=== PATIENT | male | born 1980 | race Caucasian/White ===

== ENCOUNTER 2016-05-15 22:05 | Emergency (ER) | payer OTHER, BC ==
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
[2016-05-16] MEDS ORDERED: TRAMADOL HCL 50 MG TABLET PO ONE (01:58)
[2016-05-16 02:26] VITALS: BP 138/89
== END 2016-05-16 02:15 | disposition home or self-care (01) ==
LOC: ER 22:05
DX: S00.83XA Contusion of other part of head, initial encounter (principal); R51 Headache; W20.8XXA Other cause of strike by thrown, projected or falling object, initial encounter; Y93.89 Activity, other specified; Y99.0 Civilian activity done for income or pay; Z91.013 Allergy to seafood; Z87.892 Personal history of anaphylaxis; Z88.6 Allergy status to analgesic agent
CPT/HCPCS: 70486; 99283

== ENCOUNTER → 2016-05-31 | Outpatient (CLI) | payer OTHER, BC | LOC: RAD 20:00 | PROVIDERS: ATTEND Physician Assistant | DX: F07.81 Postconcussional syndrome (principal) | CPT/HCPCS: 70450 ==

== ENCOUNTER 2016-07-02 20:15 | Emergency (ER) | payer BC, OTHER ==
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
[2016-07-03 00:53] VITALS: BP 120/72
== END 2016-07-03 00:56 | disposition home or self-care (01) ==
LOC: ER 20:15
DX: R13.10 Dysphagia, unspecified (principal); R11.10 Vomiting, unspecified
CPT/HCPCS: 70360; 71020; 99284

== ENCOUNTER 2016-07-13 21:41 | Emergency (ER) | payer OTHER, BC ==
[2016-07-13] MEDS ORDERED: METOCLOPRAMIDE HCL 10 MG TABLET PO ONE (23:44)
[2016-07-13] MEDS ORDERED: DIPHENHYDRAMINE HCL 25 MG CAPSULE PO ONE (23:44)
[2016-07-13] MEDS ORDERED: ACETAMINOPHEN 325 MG TABLET PO ONE (23:45)
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
[2016-07-14] MEDS ORDERED: FENTANYL CITRATE INJ/PF 100 MCG/2 ML AMPUL IV ONE (03:55)
[2016-07-14] MEDS ORDERED: DEXAMETHASONE SOD PHOS INJ 10 MG/1 ML VIAL IV ONE (03:55)
[2016-07-14] MEDS ORDERED: NORMAL SALINE 1000 ML 1,000 ML IV ONE (03:58)
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
[2016-07-14 05:56] VITALS: BP 130/84
== END 2016-07-14 05:56 | disposition home or self-care (01) ==
LOC: ER 21:41
DX: R51 Headache (principal); S06.0X9S Concussion with loss of consciousness of unspecified duration, sequela; W27.8XXS Contact with other nonpowered hand tool, sequela; Z91.013 Allergy to seafood; Z87.892 Personal history of anaphylaxis; Z88.6 Allergy status to analgesic agent
CPT/HCPCS: 99283; 96361; 96374; 96375; J3010; J7030; J1100

== ENCOUNTER 2017-02-13 18:43 | Emergency (ER) | payer OTHER ==
[2017-02-13] MEDS ORDERED: DIPHENHYDRAMINE HCL 50 MG/ML VIAL IV ONE (21:09)
[2017-02-13] MEDS ORDERED: NORMAL SALINE 1000 ML 1,000 ML IV ONE (21:09)
[2017-02-13] MEDS ORDERED: METOCLOPRAMIDE HCL INJ/PF 10 MG/2 ML SDV IV ONE (21:09)
[2017-02-13] MEDS ORDERED: HYDROMORPHONE HCL INJ/PF 2 MG/ML AMPULE IV ONE ×2 (21:09→23:04)
[2017-02-13] MEDS ORDERED: DEXAMETHASONE SOD PHOS INJ 10 MG/1 ML VIAL IV ONE (21:09)
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
[2017-02-13] MEDS ORDERED: METHOCARBAMOL INJ/PF 1000 MG/10 ML SDV IV ONE (23:03)
[2017-02-13 23:33] VITALS: BP 123/76
== END 2017-02-14 | disposition home or self-care (01) ==
LOC: ER 18:43
DX: R51 Headache (principal); Z88.6 Allergy status to analgesic agent; Z91.013 Allergy to seafood
CPT/HCPCS: 96376; 99283; 96361; 96375; 96365; J1200; J2800; J2765; J1170; J7030; J1100

== ENCOUNTER 2017-04-11 03:48 | Emergency (ER) | payer OTHER ==
[2017-04-11] MEDS ORDERED: ONDANSETRON HCL INJ/PF 4 MG/2 ML SDV IV ONE (03:59)
[2017-04-11] MEDS ORDERED: HYDROMORPHONE HCL INJ/PF 2 MG/ML AMPULE IV ONE ×2 (03:59→05:02)
[2017-04-11] MEDS ORDERED: NORMAL SALINE 1000 ML 1,000 ML IV ONE ×2 (03:59→06:01)
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
[2017-04-11 04:42] LABS: ABSOLUTE BASOPHILS # (AUTO) 0.1 10^3/uL (0.0-0.2); ABSOLUTE EOSINOPHILS # (AUTO) 0.1 10^3/uL (0.0-0.6); ABSOLUTE LYMPHOCYTES (AUTO) 1.8 10^3/uL (0.5-4.7); ABSOLUTE MONOCYTES (AUTO) 0.6 10^3/uL (0.1-1.4); ABSOLUTE NEUT (AUTO) 11.5 10^3/uL (1.7-8.2); BASOPHILS % (AUTO) 0.7 % (0-2); EOSINOPHILS % (AUTO) 0.7 % (0-6); HEMATOCRIT 42.6 % (37.9-51.0); HEMOGLOBIN 14.8 g/dL (13.5-17.0); HGB HCT DIFFERENCE 1.8; LYMPHOCYTES % (AUTO) 12.9 % (13-45); MEAN CORPUSCULAR HEMOGLOBIN 29.3 pg (27.0-33.4); MEAN CORPUSCULAR HGB CONC 34.7 g/dL (32.0-36.0); MEAN CORPUSCULAR VOLUME 84 fl (80-97); MONOCYTES % (AUTO) 4.4 % (3-13); RED BLOOD COUNT 5.04 10^6/uL (4.35-5.55); RED CELL DISTRIBUTION WIDTH 14.2 % (11.5-14.0); SEGMENTED NEUTROPHILS % (AUTO) 81.3 % (42-78); WHITE BLOOD COUNT 14.2 10^3/uL (4.0-10.5)
[2017-04-11 05:01] LABS: ALANINE AMINOTRANSFERASE 39 U/L (21-72); ALBUMIN 4.5 g/dL (3.5-5.0); ALKALINE PHOSPHATASE 61 U/L (38-126); ANION GAP 16 (5-19); ASPARTATE AMINO TRANSFERASE 25 U/L (17-59); BILIRUBIN,DIRECT 0.2 mg/dL (0.0-0.4); BILIRUBIN,TOTAL 0.3 mg/dL (0.2-1.3); BLOOD UREA NITROGEN 14 mg/dL (7-20); CALCIUM 9.7 mg/dL (8.4-10.2); CARBON DIOXIDE 22 mmol/L (22-30); CHLORIDE 105 mmol/L (98-107); CREATININE RESULT 1.01 mg/dL (0.52-1.25); GLUCOSE 134 mg/dL (75-110); POTASSIUM 3.7 mmol/L (3.6-5.0); SODIUM 143.1 mmol/L (137-145); TOTAL PROTEIN 7.4 g/dL (6.3-8.2)
[2017-04-11] MEDS ORDERED: DIPHENHYDRAMINE HCL 50 MG/ML VIAL IV ONE ×2 (05:02→05:08)
--- NOTE | 2017-04-11 05:02 | RADIOLOGY REPORT (SQ) ---
EXAM DESCRIPTION: CT LTD RENAL STONE PROTOCOL ON CLINICAL HISTORY: 36 years Male, left flank pain, vomiting COMPARISON: None. TECHNIQUE: This exam was performed according to our departmental dose-optimization program, which includes automated exposure control, adjustment of the mA and/or kV according to patient size and/or use of iterative reconstruction technique. FINDINGS: 0.2 cm left distal ureteral stone within 3 cm of the left ureterovesicular junction, mild left hydronephrosis-hydroureter, and minimal left perinephric fat stranding. Small moderate cortical scar in the left kidney. Appendectomy. Mild osteoarthritis of the right hip joint. Unenhanced intra-abdominal/pelvic structures appear otherwise grossly intact. No significant free fluid. Otherwise intact musculoskeleton. Musculoskeleton. IMPRESSION: 0.2 cm left distal ureteral stone with low-grade obstruction.
[2017-04-11 07:01] LABS: APPEARANCE,URINE SLIGHTLY-CLOUDY; BILIRUBIN,URINE NEGATIVE (NEGATIVE); GLUCOSE, URINE 50 mg/dL (NEGATIVE); KETONES,URINE TRACE mg/dL (NEGATIVE); LEUKOCYTE ESTERASE,URINE NEGATIVE (NEGATIVE); NITRITE,URINE NEGATIVE (NEGATIVE); PROTEIN,URINE NEGATIVE (NEGATIVE); URINE SPECIFIC GRAVITY 1.014; UROBILINOGEN,URINE NEGATIVE mg/dL (<2.0)
[2017-04-11] MEDS ORDERED: HYDROMORPHONE HCL INJ/PF 2 MG/ML AMPULE IM ONE (07:18)
[2017-04-11 07:53] VITALS: BP 127/79
== END 2017-04-11 07:40 | disposition home or self-care (01) ==
LOC: ER 03:48
DX: N13.2 Hydronephrosis with renal and ureteral calculous obstruction (principal); R11.10 Vomiting, unspecified; D72.829 Elevated white blood cell count, unspecified; Z87.440 Personal history of urinary (tract) infections; Z91.013 Allergy to seafood; Z87.892 Personal history of anaphylaxis; Z88.6 Allergy status to analgesic agent; Z90.49 Acquired absence of other specified parts of digestive tract
CPT/HCPCS: 96376; 99284; 96361; 96374; 96375; 36415; 85025; 80053; 81001; 76380; J1200; J1170; J2405; J7030

== ENCOUNTER 2018-04-27 22:25 | Emergency (ER) | payer BC, OTHER ==
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
[2018-04-28] MEDS ORDERED: PREDNISONE 20 MG TABLET PO ONE (04:27)
[2018-04-28 04:41] VITALS: BP 128/87
== END 2018-04-28 04:42 | disposition home or self-care (01) ==
LOC: ER 22:25
DX: L23.7 Allergic contact dermatitis due to plants, except food (principal)
CPT/HCPCS: 99282; J7512

== ENCOUNTER 2018-05-21 20:37 | Emergency (ER) | payer OTHER ==
--- NOTE | 2018-05-21 22:16 | RADIOLOGY REPORT (SQ) ---
EXAM DESCRIPTION: XR HAND 3 OR MORE VIEWS COMPLETED DATE/TME: 05/21/2018 21:16 CLINICAL HISTORY: 37 years, Male, pain COMPARISON: EXAM DESCRIPTION: CLINICAL HISTORY: pain COMPARISON: None FINDINGS: 3 view(s) submitted. No fracture or dislocation is identified. Bone marrow attenuation is unremarkable. No radiopaque foreign body is identified. IMPRESSION: No acute fracture or dislocation. NUMBER OF VIEWS: TECHNIQUE: LIMITATIONS: None. FINDINGS: IMPRESSION: copyright 2010 [employer]- All Rights Reserved
[2018-05-22 01:49] VITALS: BP 139/85
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
== END 2018-05-22 01:49 | disposition home or self-care (01) ==
LOC: ER 20:37
DX: S61.411A Laceration without foreign body of right hand, initial encounter (principal); W25.XXXA Contact with sharp glass, initial encounter; Y99.0 Civilian activity done for income or pay; Z88.6 Allergy status to analgesic agent; Z91.013 Allergy to seafood
CPT/HCPCS: 99282; 73130; L3908

== ENCOUNTER 2019-07-24 12:10 | Emergency (ER) | payer BC, OTHER ==
[2019-07-24] MEDS ORDERED: GLUCAGON,HUMAN RECOMB 1 MG INJ IV ONE (12:50)
[2019-07-24] MEDS ORDERED: MAG HYDROX/AL HYDROX/SIMETH SUSP 30 ML UDCUP PO ONE (12:51)
[2019-07-24] MEDS ORDERED: LIDOCAINE 2% VISCOUS SOLN 15 ML UDCUP PO ONE (12:51)
[2019-07-24] MEDS ORDERED: METOCLOPRAMIDE HCL ORAL SOLN 10 MG/10 ML UDCUP PO ONE (12:51)
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
[2019-07-24 14:50] VITALS: BP 129/89
== END 2019-07-24 15:04 | disposition home or self-care (01) ==
LOC: ER 12:10
DX: J03.90 Acute tonsillitis, unspecified (principal); Z87.892 Personal history of anaphylaxis; Z88.8 Allergy status to other drugs, medicaments and biological substances; Z91.018 Allergy to other foods; Z91.013 Allergy to seafood
CPT/HCPCS: 99282; 96374; J1610; J3490